=== PATIENT | female | born 1955 | race Caucasian/White ===

== ENCOUNTER → 2016-05-01 09:04 | Outpatient (CLI) | payer BC ==
[2015-10-15 05:39] VITALS: BMI 38.7
[~2016-05-01 09:04] MED LIST: BAYER CHEWABLE81 MG PO; BENADRYL50 MG PO; CELEXA20 MG PO; FISH OIL 1,2001 CAP PO; HYDRALAZINE HCL25 MG PO; HYDROCHLOROTHIA25 MG PO; LANTUS INSULIN10 ML SC; MELATONIN 3 MG1 TAB PO; METFORMIN HCL500 M1 PO; MULTIPLE VITAMI1 TA1 PO; NIASPAN500 MG PO; NOVOLOG100 U/M1 SC; PLAVIX75 MG PO; PRAVACHOL40 MG PO; QUESTRAN PACK4 G/PKT PO; TOPROL XL25 MG PO; VITAMIN B COMPL1 TAB PO; VITAMIN D31000 UNIT PO
[2016-05-01 10:39] LABS: ALBUMIN 3.5 g/dL (3.4-5.0); BILIRUBIN - DIRECT 0.15 mg/dL (0.00-0.30); BILIRUBIN - INDIRECT 0.55 mg/dL (0.00-1.00); BILIRUBIN - TOTAL 0.7 mg/dL (0.2-1.3); PROTEIN - SERUM 6.4 g/dL (6.4-8.2)
== END | disposition home or self-care (01) ==
LOC: D.US 09:04
PROVIDERS: Internal Medicine Gastroenterology
DX: K76.0 Fatty (change of) liver, not elsewhere classified (principal)

== ENCOUNTER → 2016-10-29 09:06 | Outpatient (CLI) | payer BC ==
[2015-10-15 05:39] VITALS: BMI 38.7
[2016-10-29 10:35] LABS: ALBUMIN 3.5 g/dL (3.4-5.0); BILIRUBIN - DIRECT 0.12 mg/dL (0.00-0.30); BILIRUBIN - INDIRECT 0.61 mg/dL (0.00-1.00); BILIRUBIN - TOTAL 0.73 mg/dL (0.2-1.3); PROTEIN - SERUM 7.2 g/dL (6.4-8.2)
== END | disposition home or self-care (01) ==
LOC: D.US 09:06
PROVIDERS: Internal Medicine Gastroenterology
DX: K76.0 Fatty (change of) liver, not elsewhere classified (principal)

== ENCOUNTER → 2017-05-01 09:05 | Outpatient (CLI) | payer BC ==
[2015-10-15 05:39] VITALS: BMI 38.7
[2017-05-01 10:32] LABS: ALBUMIN 3.9 g/dL (3.4-5.0); BILIRUBIN - DIRECT 0.1 mg/dL (0.00-0.30); BILIRUBIN - INDIRECT 0.4 mg/dL (0.00-1.00); BILIRUBIN - TOTAL 0.5 mg/dL (0.2-1.3); PROTEIN - SERUM 7.7 g/dL (6.4-8.2)
== END | disposition home or self-care (01) ==
LOC: D.US 09:05
PROVIDERS: Internal Medicine Gastroenterology
DX: R74.8 Abnormal levels of other serum enzymes (principal); K76.0 Fatty (change of) liver, not elsewhere classified

== ENCOUNTER → 2017-10-29 08:56 | Outpatient (CLI) | payer BC ==
[2015-10-15 05:39] VITALS: BMI 38.7
[~2017-10-29 08:56] MED LIST changes: +HYDROCODONE-APA1 TAB PO
[2017-10-29 10:57] LABS: ALBUMIN 3.5 g/dL (3.4-5.0); BILIRUBIN - DIRECT 0.11 mg/dL (0.00-0.30); BILIRUBIN - INDIRECT 0.46 mg/dL (0.00-1.00); BILIRUBIN - TOTAL 0.57 mg/dL (0.2-1.3); PROTEIN - SERUM 7.4 g/dL (6.4-8.2)
== END | disposition home or self-care (01) ==
LOC: D.US 08:56
PROVIDERS: Internal Medicine Gastroenterology
DX: K76.0 Fatty (change of) liver, not elsewhere classified (principal)

== ENCOUNTER 2017-11-19 12:24 | Inpatient (IN) | payer BC ==
[~2017-11-19] VITALS: Ht 162.6 cm; Wt 94.8 kg
--- NOTE | ~2017-11-19 | OP ---
PATIENT NAME: RUSSELL BRANNON MEDICAL RECORD: [id number] :55 LOCATION:D.MS [facility]2229 ADMISSION DATE:11/19/17 SURGEON: ALESSIA SIERRA MD DATE OF OPERATION: 11/21/2017 PREOPERATIVE DIAGNOSIS: Comminuted fracture dislocation of the left shoulder, intraarticular. POSTOPERATIVE DIAGNOSIS: Comminuted fracture dislocation of the left shoulder, intraarticular. PROCEDURE: Reverse total shoulder arthroplasty of the left shoulder for comminuted intra-articular 4-part fracture. SURGEON: Alessia Sierra MD ANESTHESIA: General. INTRAOPERATIVE COMPLICATIONS: None. SUMMARY OF PATHOLOGIC FINDINGS: Upon initially reducing this under fluoroscopy, I felt it might be reasonable to try internal fixation with a proximal periarticular plate. In fact, after dissection, this was indeed tried, but abandoned as it became very obvious that the patient's humeral head and articular aspect was too fragmented to try and fix with fixation and too displaced to ensure a chance at healing of the humeral head. The plate that was opened was abandoned and taken off the field. OPERATIVE SUMMARY IN DETAIL: After obtaining the appropriate preoperative orthopedic surgery consent, as well as anesthetic consultation, evaluation and clearance, the patient was brought to the operating room and placed on the operating table in a supine position. After general laryngeal mask airway was administered, the patient was placed in beach chair position. All pressure points well-padded to include vacuum pack suction system. Left upper shoulder was then prepped and draped in routine sterile fashion. The arm was held in the Trimano arm holding device. Deltopectoral incision was created, taken down to the level of cephalic vein, which was protected throughout the entire case. The conjoined tendon and clavipectoral fascia was identified and clavipectoral was incised. At this point, again reduction maneuver was performed. Plate was brought into the field and several attempts were made to try and approximate the plate for good holding; however, the visual inspection showed a large gap and multiple comminuted areas about the greater and lesser tuberosity. For this reason, using the internal fixation plate was abandoned. The greater and lesser tuberosities were tagged and controlled with #2 Ethibond. These were reflected. The humeral head was then taken out and it showed to have at least 3 intra-articular fractures to it. This was then removed and placed on the back table. Glenoid was approached. Circumferential labrectomy and biceps tenotomy was performed with excellent visualization of the glenoid. The central pin was placed for the Tornier reverse total shoulder arthroplasty Metaglene. Reaming was done followed by the central drilling. A pin was put in over the appropriate length post with good capture. Peripheral screws were put in to include both compression and locking screws. Peripheral clearance rim was done without disturbing the Castellano taper and then the glenosphere was put into place, this was a +3 glenosphere on a standard 25-mm baseplate. Good fixation was achieved, both about the Castellano taper as well as the central locking screw. At OPERATIVE REPORT [id number] RUSSELL BRANNON this point, attention was turned to the proximal humerus. The long-stem Tornier reverse fracture stem was chosen. Serial and sequential reaming and broaching were done. The final broach size [address] and then a size 6 polyethylene was placed in the metaphyseal component. The shoulder was reduced and found to be stable in all planes, even with the tuberosities still retracted, this was then dislocated. Copious irrigation was followed by placement of a cement plug in the humeral canal. The final size 7 long Tornier fracture stem was put into place. After the cement was allowed to harden, trial reduction was again tried with a #6 trial and it was found to be very stable. A final polyethylene was put in place. The shoulder was reduced, taken through range of motion without liftoff at any planes. At this point, the greater and lesser tuberosity were mobilized and tied around the stem using the back hole of the stem for good fixation using #2 Ethibonds. Again, copious irrigation was followed by closure of the deltoid interval. This was followed by #1 Vicryl, 2-0 Vicryl and skin elizabeth. Sterile dressings were applied. The patient was awakened, taken to the recovery room in stable condition. All final needle and sponge counts were correct. TRANSINT:[id number] Voice Confirmation ID: [id number] DOCUMENT ID: [id number] RIGO MUNGUIA, ALESSIA BENAVIDES at 2042 CC: [id number] DICTATION DATE: 11/22/[address] SIGN INSTALLER: 11/22/17 1518 DIS IN 11/22/17 [facility] [address] [facility] [place] [address]
--- NOTE | ~2017-11-19 | CN ---
PATIENT NAME:RUSSELL BRANNON MEDICAL RECORD: [id number] : 55 LOCATION:D.MS [facility]2229 ADMIT DATE: 11/19/17 ACCOUNT: [id number] CONSULTING PHYSICIAN: ALESSANDRA CAPELLAN MD REFERRING PHYSICIAN: ALESSIA SIERRA MD DATE OF CONSULTATION: 11/20/2017 CARDIOLOGY CONSULTATION DIAGNOSES: 1. Preoperative evaluation. 2. Coronary artery disease. 3. Previous PTCA and stent. 4. Hypertension. 5. Hyperlipidemia. HISTORY OF PRESENT ILLNESS: Ms. Brannon has a hip fracture. She is being evaluated from an operative standpoint. She does have a history of coronary artery disease. Last cardiac stent in 2015. She has had no anginal symptomatology. Troponin is normal. Her blood pressure is controlled on metoprolol, hyperlipidemia is controlled with pravastatin. PHYSICAL EXAMINATION: GENERAL APPEARANCE: Well-nourished, well-developed, appears stated age. Level of distress, comfortable. PSYCHIATRIC: Mental status, alert, normal affect. Orientation, oriented to time, place and person. EYES: Lids and conjunctiva, noninjected. No discharge, no pallor. ENT: Lips, teeth, gums, normal dentition. Oropharynx, no cyanosis, no pallor. NECK: Carotid arteries, bilateral normal upstroke, no bruits, no thrills. JUGULAR VEINS: No jugular venous pressure or distention. CERVICAL LYMPH NODES: Nontender, nonenlarged. THYROID: Not enlarged. Nontender. No nodules. LUNGS: Respiratory effort, unlabored. CHEST: Normal curvature. No thoracic deformity. No chest wall tenderness. Percussion, resonant. Auscultation, clear. No wheezes, no rales, no rhonchi. CARDIOVASCULAR: Precordial exam, nondisplaced. No heaves or pericardial thrills. Rate and rhythm, regular. Heart sounds, normal S1, normal S2. No S3, no gallop, no rub. Systolic murmur, not heard. Diastolic murmur, not heard. EXTREMITIES: No cyanosis, no edema. Peripheral pulses, full and equal in all extremities, except as noted. No bruits appreciated. ABDOMEN: Soft, nondistended. Normal aorta. No bruit. Nontender. No masses. Liver, nontender, no hepatomegaly. Spleen, nontender, no splenomegaly. MUSCULOSKELETAL: No joint tenderness. No joint swelling. No erythema. NEUROLOGICAL: Normal gait, normal strength, normal tone. SKIN: Warm and dry. OVERALL IMPRESSION: Stable coronary artery disease. Low risk for surgery from a cardiac standpoint. No other cardiac workup or treatment is necessary prior to surgery. TRANSINT:[id number] Voice Confirmation ID: [id number] DOCUMENT ID: [id number] CONSULT REPORT [id number] RUSSELL BRANNON JEFFREY MD at 1642 CC: [id number] DICTATION DATE: 11/20/17 1126 EVENT SERVICES MANAGER: 11/20/17 1216 ADM IN [place] [id number] [place] [id number]
[2017-11-19 12:00] VITALS: BP 124/80
[~2017-11-19 12:24] MED LIST changes: -HYDROCODONE-APA1 TAB PO
[2017-11-19 13:00] VITALS: BP 157/59
[2017-11-19 14:41] LABS: ALBUMIN 3.2 g/dL (3.4-5.0); ALKALINE PHOSPHATASE 48 U/L (46-116); ALT (SGPT) 42 U/L (10-68); BILIRUBIN - TOTAL 0.52 mg/dL (0.2-1.3); CALC OSMOLALITY 283 mosm/kg (275-300); CALCIUM 8.6 mg/dL (8.5-10.1); CARBON DIOXIDE 28.5 mmol/L (21.0-32.0); CHLORIDE - SERUM 101 mmol/L (98-107); POTASSIUM - SERUM 3.9 mmol/L (3.5-5.1); PROTEIN - SERUM 6.9 g/dL (6.4-8.2); SODIUM 138 mmol/L (136-145); UREA NITROGEN 29 mg/dL (7-18); eGFR NON AFRICAN AMERICAN 59 mL/min (90-120)
[2017-11-19 14:42] LABS: GLUCOSE 143 mg/dL (74-106)
[2017-11-19 14:45] LABS: BASOPHILS 0.2 % (0-2); EOSINOPHILS 0.3 % (0-7); HEMATOCRIT 39.9 % (36.0-48.0); HEMOGLOBIN 13.8 g/dL (12-16); IMMATURE GRANULOCYTES 0.3 % (0-5); LYMPHOCYTES 9.4 % (15-50); MCH 30.3 pg (26.0-34.0); MCHC 34.6 g/dL (31.0-37.0); MCV 87.5 fL (80.0-100.0); MEAN PLATELET VOLUME 11.2 fL (7.4-10.4); MONOCYTES 7.5 % (2-11); NEUTROPHILS 82.3 % (40-80); RBC 4.56 10x6/uL (4.00-5.40); RDW 12.9 % (11.5-14.5); WBC 15.8 10x3/uL (4.8-10.8)
[2017-11-19 14:46] LABS: PLATELET COUNT 185 10x3/uL (130-400)
[2017-11-19 14:53] LABS: C-REACTIVE PROTEIN 0.8 mg/dL (0.0-0.9); CREATINE KINASE 162 UL (21-215); PRO BNP 411 pg/mL (0-125); TROPONIN-I < 0.017 ng/mL (0.000-0.060)
[2017-11-19 14:54] LABS: INR 1.04 (0.85-1.17); PROTIME 13.2 SECONDS (11.6-15.0)
[2017-11-19 21:06] VITALS: BP 124/55
[2017-11-20 04:56] VITALS: BP 154/64
[2017-11-20 08:40] LABS: HEMATOCRIT 38.7 % (36.0-48.0); HEMOGLOBIN 13.1 g/dL (12-16); MCH 30.3 pg (26.0-34.0); MCHC 33.9 g/dL (31.0-37.0); MCV 89.4 fL (80.0-100.0); MEAN PLATELET VOLUME 10.4 fL (7.4-10.4); RBC 4.33 10x6/uL (4.00-5.40); RDW 13.1 % (11.5-14.5)
[2017-11-20 08:45] LABS: WBC 10.2 10x3/uL (4.8-10.8)
[2017-11-20 08:52] LABS: ANION GAP 12.4 mmol/L (8-16); CARBON DIOXIDE 27.5 mmol/L (21.0-32.0); CREATININE - SERUM 1.1 mg/dL (0.6-1.3); POTASSIUM - SERUM 3.9 mmol/L (3.5-5.1)
[2017-11-20 09:00] VITALS: BP 150/114
[2017-11-20 11:45] VITALS: BP 145/45
[2017-11-20 14:14] VITALS: Ht 162.6 cm; Wt 94.8 kg
[2017-11-20 15:46] VITALS: BP 153/41
[2017-11-20 20:00] VITALS: BP 156/55
[2017-11-21] VITALS: BP 144/51
[2017-11-21 04:00] VITALS: BP 133/46
[2017-11-21 06:47] LABS: HEMATOCRIT 33.3 % (36.0-48.0); HEMOGLOBIN 11.1 g/dL (12-16); MCH 29.8 pg (26.0-34.0); MCHC 33.3 g/dL (31.0-37.0); MCV 89.5 fL (80.0-100.0); MEAN PLATELET VOLUME 10.5 fL (7.4-10.4); RBC 3.72 10x6/uL (4.00-5.40); RDW 13.1 % (11.5-14.5); WBC 10.3 10x3/uL (4.8-10.8)
[2017-11-21 07:04] LABS: CALCIUM 7.6 mg/dL (8.5-10.1); CHLORIDE - SERUM 101 mmol/L (98-107); POTASSIUM - SERUM 3.9 mmol/L (3.5-5.1); SODIUM 134 mmol/L (136-145); UREA NITROGEN 20 mg/dL (7-18); eGFR NON AFRICAN AMERICAN 77 mL/min (90-120)
[2017-11-21 07:05] LABS: CALC OSMOLALITY 277 mosm/kg (275-300); CREATININE - SERUM 0.8 mg/dL (0.6-1.3); GLUCOSE 219 mg/dL (74-106)
[2017-11-21 09:08] VITALS: BP 160/51
[2017-11-21 20:00] VITALS: BP 157/47
[2017-11-22] VITALS: BP 160/69
[2017-11-22 04:00] VITALS: BP 166/54
[2017-11-22 08:25] LABS: BASOPHILS 0.1 % (0-2); EOSINOPHILS 0 % (0-7); HEMOGLOBIN 10.5 g/dL (12-16); IMMATURE GRANULOCYTES 0.4 % (0-5); LYMPHOCYTES 5.9 % (15-50); MCH 30.2 pg (26.0-34.0); MCHC 33.9 g/dL (31.0-37.0); MCV 89.1 fL (80.0-100.0); MEAN PLATELET VOLUME 10.6 fL (7.4-10.4); MONOCYTES 11.2 % (2-11); NEUTROPHILS 82.4 % (40-80); PLATELET COUNT 142 10x3/uL (130-400); RBC 3.48 10x6/uL (4.00-5.40); RDW 13.3 % (11.5-14.5); WBC 12.5 10x3/uL (4.8-10.8)
[2017-11-22 08:47] LABS: ALBUMIN 2.4 g/dL (3.4-5.0); ANION GAP 8.4 mmol/L (8-16); BILIRUBIN - TOTAL 0.86 mg/dL (0.2-1.3); CALCIUM 7.7 mg/dL (8.5-10.1); CARBON DIOXIDE 27.6 mmol/L (21.0-32.0); CREATININE - SERUM 0.9 mg/dL (0.6-1.3); PROTEIN - SERUM 6.1 g/dL (6.4-8.2)
[2017-11-22 09:03] VITALS: BP 110/56
[2017-11-22] MEDS ORDERED: HYDROCODONE-APA1 TAB PO (12:26)
== END 2017-11-22 14:38 | disposition home or self-care (01) | DRG 483 ==
LOC: D.ER 12:24 → D.MS 16:08 → D.EDHOLD 16:08 → D.MS 16:14 → D.EDHOLD 16:34 → D.MS 16:44
PROVIDERS: Emergency Medicine; Family Medicine; Orthopaedic Surgery
PROC: 0RRK00Z Replacement of Left Shoulder Joint with Reverse Ball and Socket Synthetic Substitute, Open Approach (ICD-10-PCS; principal; 2017-11-21 12:30)
DX: S42.242A 4-part fracture of surgical neck of left humerus, initial encounter for closed fracture (principal); W01.0XXA Fall on same level from slipping, tripping and stumbling without subsequent striking against object, initial encounter; R07.9 Chest pain, unspecified; E11.9 Type 2 diabetes mellitus without complications; Z79.4 Long term (current) use of insulin; Z95.1 Presence of aortocoronary bypass graft; Z95.5 Presence of coronary angioplasty implant and graft; F32.9 Major depressive disorder, single episode, unspecified; I25.10 Atherosclerotic heart disease of native coronary artery without angina pectoris; E78.5 Hyperlipidemia, unspecified

== ENCOUNTER → 2018-05-01 09:08 | Outpatient (CLI) | payer BC ==
[2017-11-20 14:14] VITALS: BMI 36.0
[~2018-05-01 09:08] MED LIST changes: +HYDROCODONE-APA1 TAB PO
[2018-05-01 10:26] LABS: ALBUMIN 3.3 g/dL (3.4-5.0); BILIRUBIN - DIRECT 0.11 mg/dL (0.00-0.30); BILIRUBIN - INDIRECT 0.38 mg/dL (0.00-1.00); BILIRUBIN - TOTAL 0.49 mg/dL (0.2-1.3); PROTEIN - SERUM 6.9 g/dL (6.4-8.2)
== END | disposition home or self-care (01) ==
LOC: D.US 09:08
PROVIDERS: Internal Medicine Gastroenterology
DX: K76.0 Fatty (change of) liver, not elsewhere classified (principal)

== ENCOUNTER 2018-06-10 12:20 | Observation (INO) | payer BC ==
[~2018-06-10] VITALS: Ht 162.6 cm; Wt 95.5 kg
[2018-06-10 13:12] LABS: BASOPHILS 0.3 % (0-2); IMMATURE GRANULOCYTES 0.1 % (0-5); LYMPHOCYTES 22.1 % (15-50); MCH 30.2 pg (26.0-34.0); MCV 86.4 fL (80.0-100.0); MEAN PLATELET VOLUME 10.3 fL (7.4-10.4); MONOCYTES 8.9 % (2-11); NEUTROPHILS 67.6 % (40-80); RBC 4.63 10x6/uL (4.00-5.40); RDW 13.4 % (11.5-14.5); WBC 9.2 10x3/uL (4.8-10.8)
[2018-06-10 13:17] LABS: PLATELET COUNT 190 10x3/uL (130-400)
[2018-06-10 13:22] VITALS: BP 182/67
[2018-06-10 13:31] LABS: ALBUMIN 3.5 g/dL (3.4-5.0); ALKALINE PHOSPHATASE 65 U/L (46-116); ALT (SGPT) 34 U/L (10-68); BILIRUBIN - TOTAL 0.35 mg/dL (0.2-1.3); CALC OSMOLALITY 283 mosm/kg (275-300); CALCIUM 8.9 mg/dL (8.5-10.1); CARBON DIOXIDE 25.9 mmol/L (21.0-32.0); CHLORIDE - SERUM 101 mmol/L (98-107); CREATININE - SERUM 0.9 mg/dL (0.6-1.3); GLUCOSE 195 mg/dL (74-106); POTASSIUM - SERUM 3.9 mmol/L (3.5-5.1); PROTEIN - SERUM 7.2 g/dL (6.4-8.2); SODIUM 138 mmol/L (136-145); UREA NITROGEN 20 mg/dL (7-18); eGFR NON AFRICAN AMERICAN 67 mL/min (90-120)
[2018-06-10 13:38] LABS: AMYLASE - SERUM 45 U/L (25-115); CREATINE KINASE 151 UL (21-215); LIPASE 187 U/L (73-393); MAGNESIUM - SERUM 1.7 mg/dL (1.8-2.4); TROPONIN-I < 0.017 ng/mL (0.000-0.060)
[2018-06-10 14:22] VITALS: BP 177/57
[2018-06-10 14:39] LABS: APPEARANCE CLEAR (CLEAR); BILIRUBIN NEGATIVE (NEGATIVE); COLOR STRAW (YELLOW); GLUCOSE NEGATIVE (NEGATIVE); KETONE NEGATIVE (NEGATIVE); NITRITE POSITIVE (NEGATIVE); PROTEIN 2+ mg/dL (NEGATIVE); UROBILINOGEN NORMAL (NORMAL); WHITE CELLS - URINE 0-5 /hpf (0-5)
[2018-06-10 14:40] LABS: BACTERIA MANY /hpf (NONE SEEN); EPITHELIAL CELLS 0-5 /hpf (0-5); MUCUS <1+ /lpf (NONE SEEN); RED CELLS - URINE 0-5 /hpf (0-5)
[2018-06-10 15:22] VITALS: BP 146/58
[2018-06-10 16:39] VITALS: BP 187/54
--- NOTE | 2018-06-10 17:11 | NUR ---
PT STATES SHE FEELS LIKE HER BLOOD SUGAR IS GETTING LOW. WHEN ASKED WHAT SHE IS FEELING SHE CAN NOT DESCRIBE. FACIAL DROOP HAS RESOLVED. STUTTERING IS BETTER. PINK, WARM, DRY. NAD. FSBS 81. DIABETIC DIET TRAY ORDERED.
[2018-06-10 17:22] LABS: CHOL - HDL RATIO 6.6 ratio (2.3-4.1); LDL-HDL RATIO 3.9 ratio (1.5-3.5)
[2018-06-10 17:38] VITALS: BP 134/51
--- NOTE | 2018-06-10 19:44 | NUR ---
PT REC'D IN BED AT THIS TIME. DENIES PAIN. IV OF NS INFUSING TO THE LEFT AC AT 75 ML/HR. STIE CLEAR AND PATENT AT THIS TIME. LUNGS CLEAR. BS+. NEURO CHECK WNL. SEE FLOW SHEET. PT ASSISTED UP TO RESTROOM. UNSTREADY GAIT NOTED. PT VERBALIZES DIZZINES UPON STANDING. SHE STATEST THAT SHE HAS HAD DISSINESS WHILE LAYING DOWN AT HOME. NO DISTRESS AT THIS TIME. SIDERAILS UP FOR SAFETY. CALL LIGHT IN PT REACH. Neil RIBEIRO RN
[2018-06-10 20:26] VITALS: BP 142/46
--- NOTE | 2018-06-10 20:30 | NUR ---
PT PROVIDED WITH A TURKEY SANDWICH AND FRUIT FOR EVENING MEAL. NO OTHER NEEDS VERBALIZED. Neil RIBEIRO RN
--- NOTE | 2018-06-10 22:36 | NUR ---
[id number]. SLIDING SCALE DOSE OF INSLULIN ADMINISTERED PER MD ORDER 4 UNITS GIVEN . Neil RIBEIRO RN
--- NOTE | 2018-06-10 23:30 | NUR ---
PT ASSISTED TO THE RESTROOM AT THIS TIME.DENIES ANY OTHER NEEDS AT THIS TIME. Neil RIBEIRO RN
[2018-06-11 00:17] VITALS: BP 153/41
--- NOTE | 2018-06-11 00:20 | NUR ---
TELEMETRY PLACED AT THIS TIME PER MD ORDER. Neil RIBEIRO RN
--- NOTE | 2018-06-11 01:59 | NUR ---
PT SLEEPING AT THIS TIME. NO DISTRESS NOTED. Neil RIBEIRO RN
[2018-06-11 02:51] VITALS: BP 142/46; BMI 36.1
--- NOTE | 2018-06-11 03:30 | NUR ---
NEW BAG OF NS UP AT THIS TIME. PT RESTING WELL AT THIS TIME. NO COMPLAINTS NOTED. Neil RIBEIRO RN
[2018-06-11 04:38] VITALS: BP 156/49
--- NOTE | 2018-06-11 04:38 | NUR ---
PT RE'D IN BED AT THIS TIME. NO COMPLAINTS OF PAIN NOTED. RESTING WELL THIS SHIFT. NEURO CHECKS WNL. SEE FLOWSHEET. PT UP TO BATHROOM AND STATES THAT DIZZINES IS DECREASED THIS AM. SCDS AND TELEMETRY IN PLACE THIS SHIFT PER MD ORDER. IV SITE REMAINS PATENT THIS AM. NO ACUTE DISTRESS NOTED. Neil RIBEIRO RN
--- NOTE | 2018-06-11 07:16 | NUR ---
PT GLUCOSE 110 THIS AM. NO INSULIN NEEDED THIS AM. Neil RIBEIRO RN
--- NOTE | 2018-06-11 07:30 | NUR ---
fsbs 110- no insulin given according to ss.
[2018-06-11 07:46] LABS: ANION GAP 12.8 mmol/L (8-16); CALCIUM 8.6 mg/dL (8.5-10.1); CARBON DIOXIDE 28.4 mmol/L (21.0-32.0); CREATININE - SERUM 0.9 mg/dL (0.6-1.3); POTASSIUM - SERUM 4.2 mmol/L (3.5-5.1)
[2018-06-11 08:20] LABS: BASOPHILS 0.1 % (0-2); EOSINOPHILS 1.6 % (0-7); HEMATOCRIT 40.4 % (36.0-48.0); HEMOGLOBIN 14.5 g/dL (12-16); IMMATURE GRANULOCYTES 0.2 % (0-5); MCH 31.5 pg (26.0-34.0); MCHC 35.9 g/dL (31.0-37.0); MCV 87.6 fL (80.0-100.0); MEAN PLATELET VOLUME 10.8 fL (7.4-10.4); MONOCYTES 8.6 % (2-11); NEUTROPHILS 60.5 % (40-80); PLATELET COUNT 193 10x3/uL (130-400); RBC 4.61 10x6/uL (4.00-5.40); RDW 13.8 % (11.5-14.5); WBC 8.2 10x3/uL (4.8-10.8)
[2018-06-11 08:38] VITALS: BP 135/52
--- NOTE | 2018-06-11 08:50 | NUR ---
ASSESSMENT DONE. VERBAL RESPONSES APPRO TO QUESTIONS. STATES FEELS BETTER THAT LAST NIGHT- ONLY HAS SLIGHT HEADACHE. BERNIE, GRASPS EQUAL. ABLE TO MOVE ALL EXTREMITIES. STATES THAT DR SANTY ROA WAS HERE THIS AM TO SEE HER. ATE 100% OF DIET. DENIES OTHER NEEDS.
--- NOTE | 2018-06-11 10:07 | NUR ---
SITTING UP IN BED- TALKING WITH FAMILY. DENIES NEEDS.
--- NOTE | 2018-06-11 10:34 | NUR ---
DR MADERA ORDERS CT CAROTID.
--- NOTE | 2018-06-11 11:03 | NUR ---
UP TO BATHROOM TO VOID. ORAL CARE DONE. STATES DID NOT GET DIZZY THIS TIME. RETURNS TO BED AND TOLERATED WELL.
[2018-06-11 11:35] VITALS: BP 141/58
--- NOTE | 2018-06-11 13:45 | NUR ---
DR MADERA TO PT ROOM DISCUSSING RESULTS OF CT SCAN AND POC TO INCLUDE CONSULT WITH DR BRAUN TO DETERMINE FURTHER TREATMENT IF NECESSARY. PT VERBALIZES UNDERSTANDING.
--- NOTE | 2018-06-11 13:58 | NUR ---
PT TRANSFERED VIA W/C TO RADIOLOGY FOR ORDERED CT.
--- NOTE | 2018-06-11 14:35 | NUR ---
PT RECEIVED BACK TO ROOM FROM RADIOLOGY. PT CALM, NO DISTRESS NOTED, PT DENIES ANY NEEDS. SIG OTHER AT BEDSIDE. SRUx2, CL IN REACH. WILL CONT TO MONITOR.
--- NOTE | 2018-06-11 16:49 | NUR ---
THIS RN TO ROOM FOR PT CHECK AND SCHEDULED INTERVENTIONS. PT FSBS NOTED TO BE 186, PT ADMIN 4UNITS REG INSULIN PER S/S ORDER, SEE EMAR FOR DOC. ROCEPHIN INITIATED IVPB ORDERED, SEE EMAR. NEURO CHECKS COMPLETE AND NOTED TO BE WNL, SEE FLOWSHEET FOR FULL DOC. PT DENIES PAIN OR ANY NEEDS AT THIS TIME. SIG OTHER AT BEDSIDE. SRUx2, CL IN REACH.
--- NOTE | 2018-06-11 17:30 | NUR ---
ROCEPHIN INFUSION COMPLETE, PT SITTING UP IN BED EATING DINNER, DENIES NEEDS. WILL CONT TO MONITOR.
--- NOTE | 2018-06-11 17:44 | NUR ---
REPORT CALLED TO EV RICE FOR TRANSFER OF CARE TO ROOM 2212.
--- NOTE | 2018-06-11 18:08 | NUR ---
PT TRANSFERRED TO ROOM 2212 TO CARE OF DWAYNE RINCON.
--- NOTE | 2018-06-11 18:12 | NUR ---
RECEIVED PATIENT TO FLOOR VIA WHEELCHAIR BY [facility]. ACCOMPANIED BY SPOUSE. SCD'S ON. ICE WATER GIVEN TO PATIENT AND SPOUSE. NO COMPLAINTS. ALL NEEDS MET AT THIS TIME.
--- NOTE | 2018-06-11 19:55 | NUR ---
PT RESTING IN BED. ALERT AND ORIENTED. NO SIGNS OF DISTRESS. BREATHING EVEN AND UNLABORED. PT STATES NO PROBLEMS AT THIS TIME. IV SITE LT AC DRESSING CLEAN DRY AND INTACT. NO SIGNS OF INFECTION. BOWEL SOUNDS ACTIVE. NO LOWER LEG SWELLING PRESENT. SCDS ON. BED LOWERED AND LOCKED. CALL LIGHT IN REACH. BED RAILS UP X2. WILL CONTINUE PLAN OF CARE.
--- NOTE | 2018-06-11 21:00 | NUR ---
FSBS 257 100 UNITS OF LANTUS 10 UNITS OF REGULAR INSULIN GIVEN PER SS.
[2018-06-11 21:47] VITALS: BP 105/78
[2018-06-12 01:16] VITALS: BP 110/74
--- NOTE | 2018-06-12 03:33 | NUR ---
I have reviewed this patient and I concur with the Shift Assessment completed by the Licensed Practical Nurse today this shift.
[2018-06-12 04:37] VITALS: BP 124/44
--- NOTE | 2018-06-12 07:17 | NUR ---
FSBS 113 NO COVERAGE NEEDED AT THIS TIME. PER SS.
--- NOTE | 2018-06-12 08:37 | NUR ---
PATIENT RESTING COMFOTRABLY. NO COMPLAINTS. ALL NEEDS MET AT THIS TIME.
[2018-06-12 10:39] VITALS: BP 165/50
[2018-06-12 13:03] VITALS: BP 107/87
[2018-06-12 13:41] VITALS: Ht 162.6 cm; Wt 95.5 kg
[2018-06-12] MEDS ORDERED: PLAVIX75 MG PO (16:52)
[2018-06-12] MEDS ORDERED: LEVAQUIN750 MG PO (16:53)
[2018-06-12 17:59] VITALS: BP 147/42
--- NOTE | 2018-06-12 19:19 | NUR ---
DISCUSSED DISCHARGE, MEDICATION AND FOLLOW-UP INSTRUCTIONS. REMOVED PIV, TIP INTACT. ALL BELONGINGS SENT WITH PATIENT. DISCHARGED HOME VIA WHEELCHAIR BY STAFF ACCOMPANIED BY SPOUSE.
--- NOTE | 2018-06-13 14:57 | EC ---
PATIENT:RUSSELL BRANNON DATE OF SERVICE: 06/10/18 SEX: F MEDICAL RECORD: [id number] DATE OF : 55 LOCATION:D.MS [facility] AGE OF PATIENT: 63 ADMISSION DATE: 06/10/18 REFERRING PHYSICIAN: INTERPRETING PHYSICIAN: ALESSANDRA SIMON MD ECHOCARDIOGRAM REPORT ECHO CHARGES 4 ECHO COMPLETE Date: 06/11/18 CLINICAL DIAGNOSIS: CHF HX OF HTN ECHOCARDIOGRAPHIC MEASUREMENTS (adult normal given) AC root (d.<3.7cm) 3.5 cm LV Septum d (<1.2 cm> 1.5 cm Valve Excursion 1.8 cm LV Septum (systole) 1.8 cm Left Atria (s.<4.0cm> 4.2 cm LVPW d(<1.2cm) 1.5 cm RV (d.<2.3cm) 4.4 cm LVPW (sytole) 1.6 cm LV diastole(<5.6CM) 5.1 cm MV E-F(>70mm/sec) cm LV systole 3.4 cm LVOT Diameter 2.0 cm MV exc.(>10mm) 1.5 cm Est.ejection fraction (50-75%) % DOPPLER: LVIT cm/sec A 100 cm/sec E 113 cm/sec LA cm/sec RVSP 41 mmHg LVOT 102 cm/sec AOP1/2T m/s Asc. Ao 130 cm/sec RVOT 95 cm/sec RA cm/sec PA 118 cm/sec AV Gradient Peak 6.77 mmHg AV Mean 3.87 mmHg AV Area 2.1 cm MV Gradient Peak 6.19 mmHg MV Mean 2.94 mmHg MV Area cm COMMENTS: Block Inspector: 2 HEATHER PHILLIPS Water Filter Cleaner: 1 Dr. Simon TAPE# PACS Pericardial Effusion N DATE OF SERVICE: FINDINGS: 1. Left ventricular chamber size is within normal limits. Left ventricular systolic function is normal. Overall ejection fraction estimated at 60%. 2. Left atrium is enlarged at 4.2 cm. Right atrium and right ventricular chamber sizes as well mildly dilated. 3. Valvular structures have normal structure and motion. 4. Doppler interrogation reveals mild mitral regurgitation, mild tricuspid regurgitation, no other valvular insufficiency or stenosis. Pulmonary systolic ECHOCARDIOGRAM REPORT [id number] RUSSELL BRANNON pressure is estimated 41 mmHg. 5. No evidence of pericardial effusion or left ventricular thrombus. TRANSINT:[id number] Voice Confirmation ID: [id number] DOCUMENT ID: [id number] ALESSANDRA SIMON MD at 1457 CC: [id number] DICTATION DATE: 06/12/18 1522 GRAPHIC COORDINATOR: 06/12/18 2306 DIS IN 06/12/18 [place] [id number] [place] [id number]
== END 2018-06-12 19:21 | disposition home or self-care (01) ==
LOC: D.ER 12:20 → OBSVTIME 16:33 → D.EDHOLD 16:33 → D.MS 16:33 → D.WS 16:33 → D.MS 06-11 18:08
PROVIDERS: Family Medicine; ADMIT Internal Medicine Nephrology; ATTEND Internal Medicine Nephrology
DX: I65.23 Occlusion and stenosis of bilateral carotid arteries (principal); N39.0 Urinary tract infection, site not specified; I10 Essential (primary) hypertension; E11.9 Type 2 diabetes mellitus without complications; E83.42 Hypomagnesemia; N17.9 Acute kidney failure, unspecified; G40.909 Epilepsy, unspecified, not intractable, without status epilepticus; B96.20 Unspecified Escherichia coli [E. coli] as the cause of diseases classified elsewhere

== ENCOUNTER 2018-09-01 09:07 | Inpatient (IN) | payer BC ==
[~2018-09-01] VITALS: Ht 162.6 cm; Wt 105.7 kg
[~2018-09-01 09:07] MED LIST changes: +LEVAQUIN750 MG PO
[2018-09-01] MEDS ORDERED: HUMALOG MIX 75/23 ML SC (10:07)
[2018-09-01] MEDS ORDERED: MAG-OX 400 MG400 MG PO (10:09)
[2018-09-01 11:15] LABS: MCH 30.5 pg (26.0-34.0); MCV 87.1 fL (80.0-100.0); MEAN PLATELET VOLUME 10.6 fL (7.4-10.4); RBC 4.59 10x6/uL (4.00-5.40); RDW 12.9 % (11.5-14.5); WBC 7.7 10x3/uL (4.8-10.8)
[2018-09-01 11:30] LABS: APTT 24.7 SECONDS (22.8-39.4); INR 1.04 (0.85-1.17); PROTIME 13.1 SECONDS (11.6-15.0)
[2018-09-01 11:31] LABS: ALBUMIN 3.6 g/dL (3.4-5.0); ANION GAP 11.9 mmol/L (8-16); BILIRUBIN - TOTAL 0.3 mg/dL (0.2-1.3); CALCIUM 9.1 mg/dL (8.5-10.1); CARBON DIOXIDE 31.5 mmol/L (21.0-32.0); POTASSIUM - SERUM 3.4 mmol/L (3.5-5.1); PROTEIN - SERUM 7.5 g/dL (6.4-8.2)
[2018-09-01 12:26] LABS: APPEARANCE CLEAR (CLEAR); BILIRUBIN NEGATIVE (NEGATIVE); COLOR YELLOW (YELLOW); GLUCOSE NEGATIVE (NEGATIVE); KETONE NEGATIVE (NEGATIVE); NITRITE NEGATIVE (NEGATIVE); PROTEIN 1+ mg/dL (NEGATIVE); SPECIFIC GRAVITY 1.015 (1.005-1.020); UROBILINOGEN NORMAL (NORMAL); WHITE CELLS - URINE RARE /hpf (0-5)
[2018-09-01 12:27] LABS: BACTERIA FEW /hpf (NONE SEEN); EPITHELIAL CELLS OCC /hpf (0-5); HYALINE CAST RARE /lpf (NONE SEEN); MUCUS <1+ /lpf (NONE SEEN)
[2018-09-03] VITALS (69 sets, daily range): BP systolic 110–153; BP diastolic 24–50; BMI 38.0; BMI 39.0
--- NOTE | 2018-09-03 10:49 | NUR ---
PROCESSED 373 IN CELL SAVOR
--- NOTE | 2018-09-03 10:58 | NUR ---
Nutrition follow up Reviewed chart-Remains NPO weaning from vent RD following per protocol
--- NOTE | 2018-09-03 11:45 | NUR ---
PT ARRIVE TO UNIT AT 1126. PLACED ON SIMPLE MASK AT 15L. OPENS EYES TO VOICE. RIGHT SIDE NECK INCISION WITH DRESSING CDI. RIGHT UPPER CHEST CARRIE DRAIN WITH DRESSING C/D/I. LEFT SUBCLAVIAN DOUBLE LUMEN CVL. LEFT AC PIV NOTED. PLASMOLYTE AT 100ML/HR, CLEVIPREX AT 12ML/HR, AND NITRO AT 20ML/HR. ROME CATH IN PLACE WITH YELLOW URINE NOTED. RIGHT A-LINE. CONNECTED TO ICU MONITORS. WILL REVIEW ORDERS AND MONITOR CLOSELY.
--- NOTE | 2018-09-03 13:00 | NUR ---
PT MORE AWAKE AT THIS TIME. ICE CHIPS PROVIDED. SWITCHED TO NC AT 5L OF O2. WILL CONTINUE TO MONITOR CLOSELY.
--- NOTE | 2018-09-03 13:41 | MORECARE ---
CASE MANAGEMENT DISCHARGE SUMMARY PATIENT: RUSSELL BRANNON UNIT: [id number] ADM DATE: 09/03/18 AGE: 63 : 55 SEX: F [facility] AUTHOR: HUSSAINDOC PHYSICIAN: REFERRING PHYSICIAN: FLIP BRAUN MD DATE OF SERVICE: 09/03/18 Discharge Plan Patient Name: RUSSELL BRANNON Facility: [facility]:[place] : 1955 Planned Disposition: Home Anticipated Discharge Date: 09/04/18 Discharge Date: Expected LOS: 1 Initial Reviewer: [email or web address] Initial Review Date: 09/03/2018 Generated: 09/03/18 2:41 pm Comments DCP- Discharge Planning Updated by [email or web address]: Yazmin Saavedra on 09/03/18 12:[address] Patient Name: RUSSELL BRANNON Admission Status: Elective Accout number: [id number] Admission Date: 09-03-2018 : 1955 Admission Diagnosis: Attending: FLIP BRAUN Current LOS: 1 Anticipated DC Date: 09-04-2018 Planned Disposition: Home Primary Insurance: [employer] Discharge Planning Comments: CM met with patient's sister, Gina Pack in the waiting room to complete initial dc planning assessment. CM educated Gina on the CM role and verbal consent given to complete assessment. CM verified patient's address, phone number, and emergency contact phone numbers. Patient lives at home with her and was independent prior to admission to the hospital. At discharge patient plans to return home and feels this is a safe discharge. CM discussed availability of home health, rehab services, and medical equipment. Patient's sister denied known discharge needs at this time. Patient's sister reports that she or other family members will transport her home at time of discharge. Patient's is also hospitalized at this time. CM will continue to follow and will assist as needed with dc plans/needs Presetter Operator: Yazmin Saavedra RN, [facility] DCPIA - Discharge Planning Initial Assessment Updated by [email or web address]: Yazmin Saavedra on 09/03/18 1:36 pm * Is the patient Alert and Oriented? Yes * How many steps to enter\exit or inside your home? Ramp * PCP Dr. Lee * Pharmacy [facility] on [address] * Preadmission Environment Home with Family * ADLs Independent * Equipment Glucometer * List name and contact numbers for known caregivers / representatives who currently or will assist patient after discharge: Luciano Brannon - spouse - [phone] Gina Pack - sister - [phone] * Verbal permission to speak to the caregivers and representatives has been obtained from the patient. Yes * Community resources currently utilized None * Additional services required to return to the preadmission environment? No * Can the patient safely return to the preadmission environment? Yes * Has this patient been hospitalized within the prior 30 days at any hospital? No Patient Name: RUSSELL BRANNON Page [phone] at 1341 All edits/amendments must be made on the electronic document DICTATION DATE: 09/03/18 1341 STENO POOL SUPERVISOR: MARISOL 09/03/18 1341 RPT#: [id number] DC DATE: STATUS: ADM IN [facility] [address] [place] [address] END OF REPORT
--- NOTE | 2018-09-03 15:00 | NUR ---
RESTING COMFORTABLY. RATES PAIN 4/10. DOES NOT WANT PAIN MEDICATION AT THIS TIME. WILL CONTINUE TO MONITOR.
--- NOTE | 2018-09-03 17:00 | NUR ---
BLOOD GLUCOSE WAS 274. TREATED WITH 10UNITS OF INSULIN REG PER ORDERS.
--- NOTE | 2018-09-03 19:00 | NUR ---
SHIFT ASSESSMENT COMPLETE. PT IS A&O X4 WITH NO COMPLAINTS OF PAIN OR DISCOMFORT AT THIS TIME. PERRLA, 3 MM, BRISK REACTION TO LIGHT. NO OBSTRUCTION OR STRIDOR DEVELOPMENT SEEN, MUCOUS MEMBRANES MOIST. R ANTERIOR NECK DRESSING CDI, CARRIE DRAIN NOTED WITH BLOODY DRAINAGE IN CHAMBER. R RADIAL A-LINE ZEORED, GOOD WAVE FORM SHOWING ON MONITOR, WRIST PROTECTOR IN PLACE. L RADIAL DRESSING CDI. L SUBCLAVIAN CVL INFUSING CLEVIPREX, NITRO AND PLASMALYTE, SEE IV FLOWSHEET FOR TITRATION DETIALS. ABD SOFT, BS HYPOACTIVE X4. CRITICORE ROME INTACT DRAINING KIARRA URINE. GLENNY HOSE ON. PEDAL PULSES PALP. VSS. HOB ELEVATED 45 DEGREES. IS USE X10, GOOD EFFORT, [id number] INSPIRED. WILL CONT TO ENCOURAGE IS USE. FSBS 362, 16 UN INSULIN ADMIN PER SLIDING SCALE. NO FURTHER FINDINGS AT THIS TIME. PT IS IN GOOD SPIRITS. TIGHT PARAMETERS SET ON ICU MONITORS. CALL LIGHT IN REACH, BED IN LOWEST POSITION, BED ALARM ON.
--- NOTE | 2018-09-03 21:00 | NUR ---
FAMILY AT BEDSIDE. UPDATED ON PT CONDITION. ALL QUESTIONS ANSWERED. CONT TO TITRATE NITRO AND CLEVIPREX GTTS. NO STRIOR DEVELOPMENT NOTED. A&O X4. R ANTERIOR NECK DRESSING CDI, CARRIE DRAIN NOTED WITH BLOODY DRAINAGE, COMPRESSED. WILL CONT WITH POC.
--- NOTE | 2018-09-03 21:30 | NUR ---
DIABETIC BEDTIME SNACK PROVIDED, PT ATE 100%.
--- NOTE | 2018-09-03 23:00 | NUR ---
REASSESSMENT COMPLETE. NO CHANGES IN PT CONDITION. CONT TO TITRATE GTT PER FLOWSHEET. SHE IS IN GOOD SPIRITS. IS USE X10 WITH GOOD EFFORT, 0626-0675 ML INSPIRED. WILL CONT TO ENCOURAGE IS USE. SHE STATES THAT SHE HAS BEEN DOING THEM ON EVERY COMMERCIAL BREAK. CALL LIGHT IN REACH, BED IN LOWEST POSITION. VSS. SEE FLOWSHEET FOR FURTHER DETIALS. WILL CONT WITH POC.
[2018-09-04] VITALS (117 sets, daily range): BP systolic 105–173; BP diastolic 37–78; Ht 162.6 cm; Wt 105.7 kg
--- NOTE | 2018-09-04 01:00 | NUR ---
PT RESTING PEACEFULLY WITH NO SIGNS OF ACUTE DISTRESS NOTED. VSS. CALL LIGHT IN REACH, BED IN LOWEST POSITION. WILL CONT WITH POC.
--- NOTE | 2018-09-04 02:15 | NUR ---
PT WOKE UP WITH A MARIN AND GENERALIZED PAIN RAITING AN 11/08. BP ELEVATED TO 173/51. TITRATING GTTS PER FLOWSHEET. REPOSITIONED FOR COMFORT. WILL CONT CLOSE MONITORING.
--- NOTE | 2018-09-04 02:27 | NUR ---
MAXED ON NITRO GTT. TITRATING CLEVIPREX GTT PER ORDERS.
--- NOTE | 2018-09-04 02:40 | NUR ---
BP WITHIN PARAMETERS AT THIS TIME. PT REMAINS MAXED ON NITRO. CLEVIPREX @ 21 MG/HR (42 ML/HR) AT THIS TIME. ENCOURAGED RELAXATION INTERVENTIONS. WILL CONT CLOSE MONITORING.
--- NOTE | 2018-09-04 03:00 | NUR ---
REASSESSMENT COMPLETE. SEE FLOWSHEET FOR FURTHER DETIALS. VSS. SBP REMAINS WITHIN PARAMETERS AT THIS TIME. PT DENIES ANY FURTHER PAIN. CALL LIGHT IN REACH, BED IN LOWEST POSITION. WILL CONT WITH POC.
--- NOTE | 2018-09-04 05:15 | NUR ---
EDWIN AT BEDSIDE TO REMOVE CARRIE DRAIN. 75 ML BLOODY DRAINAGE IN CARRIE.
[2018-09-04 08:37] LABS: ANION GAP 12.8 mmol/L (8-16); CALCIUM 7.3 mg/dL (8.5-10.1); CARBON DIOXIDE 26.4 mmol/L (21.0-32.0); CREATININE - SERUM 1.4 mg/dL (0.6-1.3); POTASSIUM - SERUM 3.2 mmol/L (3.5-5.1)
--- NOTE | 2018-09-04 10:44 | NUR ---
0700 PT RECIEVED IN BED ALERT AND ORIENTED ON 2L NC, R SUBCLAVIAN CVL DRESSING CDI, SEE IV FLOWSHEET FOR GTTS, R RADIAL A LINE ZEROED, GOOD WAVEFORM, WRIST PROTECTOR IN PLACE, R NECK INCISION CDI, R CHEST CARRIE SITE CDI, CRITICORE DRAINING YELLOW URINE, WILL CONTINUE TO MONITOR 0800 R RAMON AND WILD DCD PER PROTOCOL, TIP INTACT 0830 ASSISTED UP TO CHAIR FOR BREAKFAST
--- NOTE | 2018-09-04 14:00 | NUR ---
SBP WITHIN PARMETERS. CLEVIPREX TURNED OFF AT THIS TIME. WILL CONTINUE TO MONITOR CLOSELY.
--- NOTE | 2018-09-04 18:45 | NUR ---
PT HAS BEEN OFF IV DRIPS SINCE 2 PM. LAST COUPLE OF BP'S HAVE BEEN IN 140S. NO PRN MEDICATIONS AVAILABLE. DR. BRAUN NOTIFIED. OKAY TO RESTART IV BLOOD PRESSURE MEDS PER DR. BRAUN. WILL CONTINUE TO MONITOR AND TREAT NEEDED.
--- NOTE | 2018-09-04 19:00 | NUR ---
REPORT RECEIVED, INITIAL SHIFT ASSESSMENT COMPLETE SEE FLOW SHEET, PT AAOx4 DENIES PAIN OR NEEDS AT THIS TIME, LEFT SUBCLAVIAN CVL SALINE LOCKED, RCEA SITE C/D/I, NSR ON CM, SBP ELEVATED, DAY SHIFT RN STATED SHE DISCUSSED WITH PHYSICIAN AND ABLE TO RESTART IVF FOR ELEVATED SBP, WILL CONTINUE TO MONITOR, OTHER VSS, BILAT SCD AND GLENNY ADAMS
--- NOTE | 2018-09-04 20:28 | NUR ---
SBP ELEVATED SEE FLOW SHEET, NITRO GTT STARTED PER ORDERS, OTHER VSS, WILL CONTINUE TO MONITOR
--- NOTE | 2018-09-04 23:00 | NUR ---
REASSESSSMENT COMPLETE SEE FLOW SHEET, PT AAOx4, DENIES NEEDS AT THIS TIME, SBP WITH NITRO GTT PER ORDERS, OTHER VSS, REPOSITIONED FOR COMFORT, WILL CONTINUE TO MONITOR
[2018-09-05] VITALS (38 sets, daily range): BP systolic 111–152; BP diastolic 43–896
--- NOTE | 2018-09-05 03:00 | NUR ---
REASSESSMENT COMPLETE PER FLOW SHEET, PT RESTING COMFORTABLY IN BED, DENIES NEEDS AT THIS TIME, AAOx4, PT ASSISTED TO BEDSIDE COMMODE, CLEAR YELLOW VOID NOTED, PT ASSISTED BACK TO BED, REPOSITIONED FOR COMFORT, SBP CONTINUES TO BE ELEVATED ON IVF, OTHER VSS, WILL CONTINUE TO MONITOR
--- NOTE | 2018-09-05 06:00 | NUR ---
CHG BATH GIVEN, NEW YELLOW GOWN AND COMPLETE LINEN CHANGE, PT ASSISTED TO BEDSIDE CHAIR, SBP ELEVATED TITRATING IVF PER ORDERS/MAR, OTHER VSS, PT AAOx4, DENIES PAIN OR NEEDS, WILL CONTINUE TO MONITOR
[2018-09-05] MEDS ORDERED: ULTRAM50 MG PO (10:06)
--- NOTE | 2018-09-05 12:56 | NUR ---
1110-AMBULATED PT WITHOUT DIFFICULTY 50 FEET-NOTED NORMAL GAIT LUNCH TRAY PROVIDED -REIVIEWED DISCHARGE INSTRUCTIONS-CONFIRMED WITH PT -FOLLOW UP APPOINTMENT WITH DR BRAUN-PT STATED DIRECTED BY DR BRAUN MAY SHOWER IN AM-DRIVING TO START WHEN ABLE TO TURN HEAD WITHOUT DIFFICULTY-WATER TO INCISION LINE AND NO ROUGH TOWELLING-REVIEWED SWELLING TO NECK AREA S/S TO LOOK FOR AND WHEN MD CALL VERSUS 911 CALL-REQUIRED L CVL D/C'D WITH TIP INTACT-HEMOSTASIS OBTAINED 1230-PT REQUESTED TO BE ASSISTED TO [id number] RECIEVED PT THERE AND STRONG UNDERSTANDING WILL GO HOME WITH DAUGHTER
--- NOTE | 2018-09-05 22:21 | MORECARE ---
CASE MANAGEMENT DISCHARGE SUMMARY PATIENT: RUSSELL BRANNON UNIT: [id number] ADM DATE: 09/03/18 AGE: 63 : 55 SEX: F ROOM/BED: [facility] AUTHOR: HUSSAIN,DOC PHYSICIAN: REFERRING PHYSICIAN: FLIP BRAUN MD DATE OF SERVICE: 09/05/18 Discharge Plan Patient Name: RUSSELL BRANNON Facility: [facility]:[place] : 1955 Planned Disposition: Home Anticipated Discharge Date: 09/04/18 Discharge Date: 09/05/2018 Expected LOS: 1 Initial Reviewer: [email or web address] Initial Review Date: 09/03/2018 Generated: 09/05/18 11:20 pm Comments DCP- Discharge Planning Updated by [email or web address]: Yazmin Saavedra on 09/03/18 12:[address] Patient Name: RUSSELL BRANNON Admission Status: Elective Accout number: [id number] Admission Date: 09-03-2018 : 1955 Admission Diagnosis: Attending: FLIP BRAUN Current LOS: 1 Anticipated DC Date: 09-04-2018 Planned Disposition: Home Primary Insurance: [employer] Discharge Planning Comments: CM met with patient's sister, Gina Pack in the waiting room to complete initial dc planning assessment. CM educated Gina on the CM role and verbal consent given to complete assessment. CM verified patient's address, phone number, and emergency contact phone numbers. Patient lives at home with her and was independent prior to admission to the hospital. At discharge patient plans to return home and feels this is a safe discharge. CM discussed availability of home health, rehab services, and medical equipment. Patient's sister denied known discharge needs at this time. Patient's sister reports that she or other family members will transport her home at time of discharge. Patient's is also hospitalized at this time. CM will continue to follow and will assist as needed with dc plans/needs Slurry Control Tender: Yazmin Saavedra RN, [facility] DCPIA - Discharge Planning Initial Assessment Updated by [email or web address]: Yazmin Saavedra on 09/03/18 1:36 pm * Is the patient Alert and Oriented? Yes * How many steps to enter\exit or inside your home? Ramp * PCP Dr. Lee * Pharmacy [facility] on [address] * Preadmission Environment Home with Family * ADLs Independent * Equipment Glucometer * List name and contact numbers for known caregivers / representatives who currently or will assist patient after discharge: Luciano Brannon - spouse - [phone] Gina Pack - sister - [phone] * Verbal permission to speak to the caregivers and representatives has been obtained from the patient. Yes * Community resources currently utilized None * Additional services required to return to the preadmission environment? No * Can the patient safely return to the preadmission environment? Yes * Has this patient been hospitalized within the prior 30 days at any hospital? No Last DP export: 09/03/18 12:41 pm Patient Name: RUSSELL BRANNON Page [id number] at 2221 All edits/amendments must be made on the electronic document DICTATION DATE: 09/05/182219 INSURANCE MANAGER: MARISOL 09/05/182219 RPT#: [id number] DC DATE:09/05/18 STATUS: DIS IN [facility] [address] [place] [address] END OF REPORT
--- NOTE | 2018-09-08 19:37 | OP ---
PATIENT NAME: RUSSELL BRANNON MEDICAL RECORD: [id number] :55 [facility] ADMISSION DATE:09/03/18 SURGEON: FLIP BRAUN MD DATE OF OPERATION: 09/03/2018 SURGEON: Flip Braun MD ICE SKATER: Dr. Warren ANESTHESIA: General endotracheal, Dr. Brannon. OPERATION PERFORMED: Right carotid endarterectomy with patch angioplasty. PREOPERATIVE DIAGNOSIS: Severe right internal carotid artery stenosis, symptomatic. POSTOPERATIVE DIAGNOSIS: Severe right internal carotid artery stenosis, symptomatic. INDICATION FOR OPERATION: Symptomatic right internal carotid artery stenosis. FINDINGS AT OPERATION: Severe right internal carotid artery stenosis with ruptured plaque. DESCRIPTION OF PROCEDURE: After informed consent, adequate preoperative medication evaluation, the patient was brought to the operating room, placed on the table in supine position. After induction of general endotracheal anesthesia and application of appropriate monitoring devices, the right neck and chest were prepped and draped in sterile field, utilizing Betadine scrub, alcohol, and Betadine solution. Betadine-impregnated drape was also used. An oblique incision was made in the skin crease. Dissection carried down to the fascia. Hemostasis was maintained with electrocautery. Facial vein was identified and divided. Utilizing sharp dissection, the common carotid, internal and external carotid arteries were dissected free of surrounding structures, protecting the neurological structures. Dr. Warren participated in the dissection as well as the endarterectomy and placement of a patch. After the patient was given a calculated dose of heparin, after 3 minutes, clamps were applied, after 2 minutes, the arteriotomy was made and extended with Lerma scissors. A Johnson F3 shunt was placed with good cerebral oximetry. The patient then underwent carotid endarterectomy sharply and extensive debridement and irrigation. Utilizing a CorMatrix vascular patch, a running 7-0 Prolene suture, the arteriotomy was closed with patch angioplasty technique. The shunt was removed. The remaining 3 sutures were placed. The clamps were released after all maneuvers to remove trapped air were performed. There was good flow to the graft with good hemostasis. The neck was irrigated. The instrument count and sponge counts were correct times 2. The patient was given a calculated dose of protamine to reverse the heparin. Hemostasis was assured. The instrument count and sponge counts were correct. A #7 Willie-Hopper drain was left in depths of wound and brought out through the base of the neck. Neck was again irrigated. Instrument count and sponge count were correct times 2. Neck was closed in layers utilizing 3-0 Vicryl on the platysma, 5-0 subcuticular Monocryl on the skin. Sterile dressings were applied. The patient tolerated the procedure well and was transferred to cardiovascular recovery in satisfactory condition. OPERATIVE REPORT [id number] RUSSELL BRANNON TRANSINT:[id number] Voice Confirmation ID: [id number] DOCUMENT ID: [id number] FLIP BRAUN MD at 1937 CC: [id number] DICTATION DATE: 09/03/18 1103 RAIL CAR WELDER: 09/03/18 1454 DIS IN 09/05/18 [id number] [place] [address]
== END 2018-09-05 13:03 | disposition home or self-care (01) | DRG 39 ==
LOC: D.SDCHOLD 09-03 05:00 → D.CVICU 09-03 05:00 → D.SDCHOLD 09-03 07:30 → D.CVICU 09-03 10:54
PROVIDERS: Thoracic Surgery (Cardiothoracic Vascular Surgery); ADMIT Internal Medicine Cardiovascular Disease; ATTEND Internal Medicine Cardiovascular Disease
PROC: 03UK0JZ Supplement Right Internal Carotid Artery with Synthetic Substitute, Open Approach (ICD-10-PCS; 2018-09-03)
PROC: 03CK0ZZ Extirpation of Matter from Right Internal Carotid Artery, Open Approach (ICD-10-PCS; principal; 2018-09-03 07:30)
DX: I65.23 Occlusion and stenosis of bilateral carotid arteries (principal); E78.5 Hyperlipidemia, unspecified; I10 Essential (primary) hypertension; I25.10 Atherosclerotic heart disease of native coronary artery without angina pectoris; G40.909 Epilepsy, unspecified, not intractable, without status epilepticus; E11.9 Type 2 diabetes mellitus without complications

== ENCOUNTER → 2018-09-29 09:19 | Outpatient (CLI) | payer BC ==
[2018-09-04 10:05] VITALS: BMI 40.0
[~2018-09-29 09:19] MED LIST changes: +HUMALOG MIX 75/23 ML SC; +MAG-OX 400 MG400 MG PO; +ULTRAM50 MG PO
[2018-09-29 11:41] LABS: ALBUMIN 3.7 g/dL (3.4-5.0); BILIRUBIN - DIRECT 0.1 mg/dL (0.00-0.30); BILIRUBIN - INDIRECT 0.38 mg/dL (0.00-1.00); BILIRUBIN - TOTAL 0.48 mg/dL (0.2-1.3)
== END | disposition home or self-care (01) ==
LOC: D.US 09:19
PROVIDERS: ATTEND Internal Medicine Gastroenterology
DX: K76.0 Fatty (change of) liver, not elsewhere classified (principal)

== ENCOUNTER → 2019-03-16 12:31 | Outpatient (CLI) | payer BC ==
[2018-09-04 10:05] VITALS: BMI 40.0
== END | disposition home or self-care (01) ==
LOC: D.US 12:31
PROVIDERS: ATTEND Internal Medicine Cardiovascular Disease
DX: I65.29 Occlusion and stenosis of unspecified carotid artery (principal)

== ENCOUNTER → 2019-08-25 09:49 | Outpatient (CLI) | payer BC ==
[2018-09-04 10:05] VITALS: BMI 40.0
== END | disposition home or self-care (01) ==
LOC: D.US 09:49
PROVIDERS: ATTEND Internal Medicine Cardiovascular Disease
DX: I65.23 Occlusion and stenosis of bilateral carotid arteries (principal)